=== PATIENT | male | born 1975 | race Caucasian/White ===

== ENCOUNTER 2017-12-19 13:19 | Inpatient (IN) | payer SELFPAY ==
[~2017-12-19] VITALS: Ht 325.1 cm; Wt 69.9 kg
[2017-12-19] MEDS ORDERED: ONDANSETRON 4MG ODT PO ONE (14:15)
[2017-12-19] MEDS ORDERED: IBUPROFEN 100MG/5ML UDC PO ONE (16:00)
[2017-12-19] MEDS ORDERED: SODIUM CHLORIDE 0.9% 1,000 ML IV ONE ×2 (16:00→20:45)
[2017-12-19 18:07] LABS: CLARITY URINE CLEAR (CLEAR); COLOR URINE DARK YELLOW (YELLOW); KETONES URINE 1+ (NEGATIVE); LEUKOCYTE ESTERASE URINE TRACE (NEGATIVE); NITRITE URINE NEGATIVE (NEGATIVE); OCCULT BLOOD URINE NEGATIVE (NEGATIVE); PROTEIN URINE 1+ (NEGATIVE); UROBILINOGEN URINE >8.0 E.U./dL (0.2-1.0)
[2017-12-19] MEDS ORDERED: MECLIZINE 25MG TABLET PO ONE (20:45)
[2017-12-19] MEDS ORDERED: ONDANSETRON HCL 4MG/2ML VIAL IM ONE (21:30)
[2017-12-19 22:32] LABS: HEMOGLOBIN. 9.9 g/dL (14.0-18.0); MEAN CORPUSCULAR HEMOGLOBIN 32.4 pg (28.0-32.0); MEAN PLATELET VOLUME 7.7 fl (7.4-10.4); PLATELET 118 x1000/uL (130-400); RED BLOOD CELL COUNT 3.04 mill/uL (4.7-6.1); RED CELL DISTRIBUTION WIDTH 15.4 % (11.6-14.6)
[2017-12-19 22:37] LABS: CHLORIDE 95 mEq/L (98-107)
[2017-12-19 22:42] LABS: CARBON DIOXIDE 28 mEq/L (21-32)
[2017-12-19] MEDS ORDERED: POTASSIUM CHLORIDE 20MEQ TABLET SR PO ONE (23:00)
[2017-12-19 23:07] LABS: NUCLEATED RED BLOOD CELLS 1 /100 WBC; PLATELET ESTIMATE DECREASED
[2017-12-20] VITALS: BP_SYST 112; BP_SYST 124; BP_DIAS 56; BP_DIAS 75
[2017-12-20] MEDS ORDERED: ACETAMINOPHEN 650MG/20.3ML UDC GT PRN (01:30)
[2017-12-20] MEDS ORDERED: IPRATROPIUM/ALBUTEROL 0.5-3(2.5)MG/3ML NEB INH PRN (01:30)
[2017-12-20] MEDS ORDERED: ACETAMINOPHEN 325MG TABLET PO PRN (01:30)
[2017-12-20] MEDS ORDERED: ONDANSETRON HCL 4MG/2ML VIAL IV PRN (01:30)
[2017-12-20] MEDS ORDERED: LORAZEPAM 2MG/ML CPJ IV PRN (01:30)
[2017-12-20] MEDS ORDERED: DOCUSATE SODIUM 100MG CAPSULE PO PRN (01:30)
[2017-12-20] MEDS ORDERED: NA PHOS,M-B/NA PHOS,DI-BA ENEMA 118ML PR PRN (01:30)
[2017-12-20] MEDS ORDERED: MAGNESIUM/ALUMINUM HYDROXIDE/SIMETHICONE 30ML UDC PO PRN (01:30)
[2017-12-20] MEDS ORDERED: GUAIFENESIN 200MG/10ML SUGAR FREE UDC PO PRN (01:30)
[2017-12-20] MEDS ORDERED: ACETAMINOPHEN 650MG SUPP PR PRN (01:30)
[2017-12-20] MEDS ORDERED: CLONIDINE 0.1MG TABLET PO PRN (01:30)
[2017-12-20] MEDS ORDERED: HYDROCODONE/ACETAMINOPHEN 5/325MG TABLET PO PRN (01:30)
[2017-12-20] MEDS ORDERED: DIPHENHYDRAMINE 50MG/ML VIAL IV PRN (01:30)
[2017-12-20] MEDS: DEXT 5%/0.45% NACL 1000ML 1,000 ML IV SCH ×2 (01:45→19:35)
[2017-12-20 03:30] VITALS: BP 124/75
[2017-12-20] MEDS: CHLORDIAZEPOXIDE 25MG CAPSULE PO SCH ×3 (05:24→23:40)
[2017-12-20] MEDS: SODIUM CHLORIDE 0.9% INJ 3ML FLUSH IVF SCH ×2 (05:24→22:01)
[2017-12-20 08:00] VITALS: BP 115/74
[2017-12-20] MEDS: FOLIC ACID 1MG TABLET PO SCH ×2 (08:53→09:23)
[2017-12-20] MEDS: POTASSIUM CHLORIDE 20MEQ TABLET SR PO SCH ×2 (08:54→09:22)
[2017-12-20] MEDS: THIAMINE HCL 100MG TABLET PO SCH ×2 (08:55→09:23)
[2017-12-20] MEDS: ENOXAPARIN 40MG/0.4ML SYR SUBCUT SCH (09:00)
[2017-12-20 12:00] VITALS: BP 113/70
[2017-12-20] MEDS ORDERED: INFLUENZA VIRUS VACCINE 0.5ML SYR IM ONE (12:00)
[2017-12-20 16:00] VITALS: BP 108/64
[2017-12-20 20:00] VITALS: BP 102/65
[2017-12-20 23:44] LABS: HEMATOCRIT. 30.8 % (42.0-52.0); HEMOGLOBIN. 10.5 g/dL (14.0-18.0); MEAN CORPUSCULAR VOLUME 93.5 fL (80.0-94.0); MEAN PLATELET VOLUME 7.9 fl (7.4-10.4); PLATELET 140 x1000/uL (130-400); RED BLOOD CELL COUNT 3.29 mill/uL (4.7-6.1); RED CELL DISTRIBUTION WIDTH 16.2 % (11.6-14.6)
[2017-12-20 23:47] LABS: PARTIAL THROMBOPLASTIN TIME 24.5 sec (23.4-31.0)
[2017-12-21] VITALS: BP 98/52
[2017-12-21 00:01] LABS: CHLORIDE 96 mEq/L (98-107)
[2017-12-21 00:11] LABS: CARBON DIOXIDE 33 mEq/L (21-32)
[2017-12-21 00:54] LABS: PLATELET ESTIMATE SLIGHTLY DECREASED
[2017-12-21 04:00] VITALS: BP 101/59
[2017-12-21] MEDS: DEXT 5%/0.45% NACL 1000ML 1,000 ML IV SCH (04:05)
[2017-12-21] MEDS: SODIUM CHLORIDE 0.9% INJ 3ML FLUSH IVF SCH ×2 (06:45→13:55)
[2017-12-21] MEDS: CHLORDIAZEPOXIDE 25MG CAPSULE PO SCH ×2 (06:46→13:55)
[2017-12-21 07:10] LABS: HEMATOCRIT. 30.9 % (42.0-52.0); HEMOGLOBIN. 10.9 g/dL (14.0-18.0); MEAN PLATELET VOLUME 7.9 fl (7.4-10.4); PLATELET 137 x1000/uL (130-400); RED BLOOD CELL COUNT 3.29 mill/uL (4.7-6.1); RED CELL DISTRIBUTION WIDTH 16.2 % (11.6-14.6)
[2017-12-21 08:00] VITALS: BP 101/58
[2017-12-21 08:01] LABS: CHLORIDE 98 mEq/L (98-107)
[2017-12-21 08:14] LABS: CARBON DIOXIDE 30 mEq/L (21-32)
[2017-12-21] MEDS ORDERED: THIA100T13 PO (08:48)
[2017-12-21] MEDS ORDERED: FOLI-43 PO (08:49)
[2017-12-21] MEDS: ENOXAPARIN 40MG/0.4ML SYR SUBCUT SCH (09:00)
[2017-12-21] MEDS: POTASSIUM CHLORIDE 20MEQ TABLET SR PO SCH (09:30)
[2017-12-21] MEDS: THIAMINE HCL 100MG TABLET PO SCH (09:30)
[2017-12-21] MEDS: FOLIC ACID 1MG TABLET PO SCH (09:31)
[2017-12-21 11:23] VITALS: BP 101/58
[2017-12-21 12:00] VITALS: BP 92/54
[2017-12-21 13:42] LABS: PLATELET ESTIMATE NORMAL
== END 2017-12-21 15:00 | disposition home or self-care (01) | DRG 775 ==
LOC: ER 13:29 → 6EST 12-20 → EDBEDREQ 12-20 00:06 → EDBEDREQTM 12-20 00:06 → EDBEDREQDT 12-20 00:06 → ENRESERV 12-20 02:09
PROVIDERS: ADMIT Family Medicine; ATTEND Family Medicine
DX: F10.129 Alcohol abuse with intoxication, unspecified (principal); E46 Unspecified protein-calorie malnutrition; I95.9 Hypotension, unspecified; Y90.8 Blood alcohol level of 240 mg/100 ml or more; Z68.1 Body mass index [BMI] 19.9 or less, adult
CPT/HCPCS: 36415; 71045; 80048; 80053; 81001; 82962; 85025; 85610; 85730; 90686; 93005; 96360; 96361; 96372; 97162; 99285; G0482; J1650; J2060; J2405; J7030; J8597; Q0162